=== PATIENT | male | born 1955 | race African-American/Black ===

== ENCOUNTER 2020-12-18 18:43 | Inpatient (IN) | payer MEDICARE, OTHER ==
[~2020-12-18] VITALS: Ht 198.1 cm; Wt 80.6 kg
[~2020-12-18 18:43] MED LIST: CELE200C PO; CYCL-331 PO; GLIM4TAB PO; HYDR-2678 PO; INSU100I11 SQ; METF10007 PO; NEBI10TA3 PO; PREG75CA PO; QUIN40TA16 PO; TRAM-48 PO; VIT1TABL2 PO
[2020-12-18] MEDS ORDERED: IV NORMAL SALINE 1,000ML 1,000 ML IV ONE (19:45)
[2020-12-18] MEDS ORDERED: ONDANSETRON PF 4 MG/2 ML VIAL. IVP ONE (20:00)
--- NOTE | 2020-12-18 20:04 | PHYS DOC ---
Past History Past Medical History: Diabetes, Other (Takotsubo, BPH, history of pituitary removal) Adult General Chief Complaint Chief Complaint: NAUSEA/VOMITING/DIARRHEA HPI HPI Patient is a 65-year-old male presents via POV for nausea vomit and UTI-like symptoms. He reports he awoke with the suprapubic pain and more difficulty than usual urinating 3 days ago. Reports he has been nauseous off and on with worsening nausea in the past 24 hours and " I think like 15" episodes of nonbloody nonbilious emesis. States he has had poor p.o. intake. Lives home alone, states he has not had any falls, no fever, no chest pain, no shortness of breath, no abdominal pain, no motor or sensory function changes, no neurologic changes. Admits history of pituitary resection and has been on hydrocortisone ever since, states he has not been able to take home medications for past 48 hours due to nausea and inability to keep anything down Review of Systems Review of Systems Fourteen body systems of review of systems have been reviewed. See HPI for pertinent positives and negative responses, other seaman all other systems are negative, non-pertinent or non-contributory Current Medications Current Medications Current Medications Medications (Trade) Dose Ordered Sig/Carissa Start Time Stop Time Status Last Admin Dose Admin Ondansetron HCl (Zofran) 4 mg 1X ONCE 12/18/20 20:00 12/18/20 20:01 UNV Sodium Chloride 1,000 ml @ 1,000 mls/hr 1X ONCE 12/18/20 19:45 12/18/20 20:44 Allergies Allergies Allergies Coded Allergies Type Severity Reaction Last Updated Verified Penicillins Allergy Intermediate 01/16/14 Yes Physical Exam Physical Exam Constitutional: Well developed, well nourished, no acute distress, non-toxic appearance. HENT: Normocephalic, atraumatic, bilateral external ears normal, oropharynx dry, no oral exudates, nose normal. Eyes: PERRLA, EOMI, conjunctiva normal, no discharge. Neck: Normal range of motion, no tenderness, supple, no stridor. Cardiovascular: Heart rate regular, sinus rhythm, no murmurs rubs or gallops Lungs & Thorax: Bilateral breath sounds clear to auscultation Abdomen: Bowel sounds normal, soft, suprapubic tenderness with palpation without guarding or rebound, no masses, no pulsatile masses. Nonsurgical abdomen, no peritoneal signs Skin: Warm, dry, no erythema, no rash. Back: No tenderness, no CVA tenderness. Extremities: No tenderness, no cyanosis, no clubbing, ROM intact, no edema. Neurologic: Alert and oriented X 3, grossly normal motor & sensory function, no focal deficits noted. Psychologic: Affect normal, judgement normal, depressed mood Current Patient Data Vital Signs Vital Signs Date Time Temp Pulse Resp B/P (MAP) Pulse Ox O2 Delivery O2 Flow Rate FiO2 12/18/20 19:10 97.9 98 20 136/98 (111) 100 Room Air Vital Signs Date Time Temp Pulse Resp B/P (MAP) Pulse Ox O2 Delivery O2 Flow Rate FiO2 12/19/20 00:11 Room Air 12/18/20 23:44 98.5 89 20 122/84 (97) 97 Lab Results Laboratory Tests Test 12/18/20 19:30 12/18/20 20:50 12/18/20 20:51 Glucose (Fingerstick) 140 mg/dL Urine Collection Type Unknown Urine Color Meg Urine Clarity Cloudy Urine pH 5.5 Urine Specific Mclean >=1.030 Urine Protein Trace Urine Glucose (UA) Neg mg/dL Urine Ketones (Stick) 15 mg/dL Urine Blood Neg Urine Nitrite Pos Urine Bilirubin Small Urine Urobilinogen Dipstick 0.2 mg/dL Urine Leukocyte Esterase Neg Urine RBC 0 /HPF Urine WBC 0 /HPF Urine Squamous Epithelial Cells Few /LPF Urine Bacteria Few /HPF White Blood Count 5.6 x10^3/uL Red Blood Count 4.43 x10^6/uL Hemoglobin 13.6 g/dL Hematocrit 40.6 % Mean Corpuscular Volume 92 fL Mean Corpuscular Hemoglobin 31 pg Mean Corpuscular Hemoglobin Concent 34 g/dL Red Cell Distribution Width 13.5 % Platelet Count 174 x10^3/uL Neutrophils (%) (Auto) 51 % Lymphocytes (%) (Auto) 36 % Monocytes (%) (Auto) 9 % Eosinophils (%) (Auto) 3 % Basophils (%) (Auto) 1 % Neutrophils # (Auto) 2.9 x10^3uL Lymphocytes # (Auto) 2.0 x10^3/uL Monocytes # (Auto) 0.5 x10^3/uL Eosinophils # (Auto) 0.2 x10^3/uL Basophils # (Auto) 0.0 x10^3/uL Sodium Level 137 mmol/L Potassium Level 4.3 mmol/L Chloride Level 102 mmol/L Carbon Dioxide Level 23 mmol/L Anion Gap 12 Blood Urea Nitrogen 23 mg/dL Creatinine 1.7 mg/dL Estimated GFR (Cockcroft-Gault) 49.3 BUN/Creatinine Ratio 14 Glucose Level 130 mg/dL Calcium Level 8.5 mg/dL Total Bilirubin 0.9 mg/dL Aspartate Amino Transf (AST/SGOT) 25 U/L Alanine Aminotransferase (ALT/SGPT) 20 U/L Alkaline Phosphatase 64 U/L Troponin I Quantitative < 0.017 ng/mL Total Protein 7.8 g/dL Albumin 3.7 g/dL Albumin/Globulin Ratio 0.9 Lipase 48 U/L Current Medications Medications (Trade) Dose Ordered Sig/Carissa Route PRN Reason Start Time Stop Time Status Last Admin Dose Admin Sodium Chloride 1,000 ml @ 1,000 mls/hr 1X ONCE IV 12/18/20 19:45 12/18/20 20:44 DC 12/18/20 20:05 Ondansetron HCl (Zofran) 4 mg 1X ONCE IVP 12/18/20 20:00 12/18/20 20:24 DC 12/18/20 20:09 EKG EKG EKG ordered and interpreted by myself at 2128 as sinus rhythm at 92 bpm, intervals unremarkable, left axis deviation, T wave inversions noted in lead I, lead V3, V4, V5 and V6. No STEMI Radiology/Procedures Radiology/Procedures [] Heart Score C/O Chest Pain: No HEART Score for Chest Pain: HEART Score for Chest Pain Response (Comments) Value History Slighlty/Non-Suspicious 0 ECG Nonspecific Repolarizatio 1 Age >45 - < 65 1 Risk Factors >3 Risk Factors or Hx CAD 2 Troponin < Normal Limit 0 Total 4 Risk Factors: Risk Factors: DM, Current or recent (<one month) smoker, HTN, HLP, family history of CAD, obesity. Risk Scores: Risk Factors: DM, Current or recent (<one month) smoker, HTN, HLP, family history of CAD, obesity. Course & Med Decision Making Course & Med Decision Making Hemodynamically stable patient with HPI concerning for nausea and vomit with dehydration and UTI-like symptoms. Physical exam nonconcerning for surgical or emergent pathology ER work-up concerning for UTI. Patient has elevated serum creatinine but this appears near baseline, does appear clinically dehydrated though I discussed case with hospitalist who agreed need for admission. Hospitalist recommended starting 1 g IV Rocephin and administering 50 Solu-Cortef given that patient has not been able to tolerate home daily steroids I have updated patient on proposed plan of care that involved hospital admission, he was amenable. He is relieved that he is being admitted as he has fear of being able to care for himself at home given his weak state. All questions and concerns addressed prior to admission Critical Care Time This patient required critical care. Due to the fact that the patient required a significant amount of one on one physician - patient contact time, ordering and review of studies, arranging urgent treatment with development of a management plan, evaluation of patients response to treatment with frequent reassessments, and discussions with other providers this patient required 45 minutes of critical care time. Critical care time was indicated due to the inherent instability and/or potential for instability in this patient. The critical care time that is allocated to this patient is above and beyond any time spent on any other billable procedures performed on this patient. Dragon Disclaimer Dragon Disclaimer This electronic medical record was generated, in whole or in part, using a voice recognition dictation system. Departure Departure: Impression: Primary Impression: UTI (urinary tract infection) Additional Impression: Nausea & vomiting Disposition: 02 SHORT TERM HOSPITAL Admitting Physician: Donn Rogers Condition: STABLE Referrals: MCKENZIE LOPEZ MD (PCP) Problem Qualifiers JACOBO HERNANDEZ DO Dec 18, 2020 20:04
[2020-12-18 21:06] LABS: BASO % 1 % (0-3); EOS # 0.2 x10^3/uL (0.0-0.7); EOS % 3 % (0-3); HEMATOCRIT 40.6 % (39.0-53.0); HEMOGLOBIN 13.6 g/dL (13.0-17.5); LYMPH % 36 % (24-48); MEAN CORPUSCULAR HEMOGLOBIN 31 pg (25-35); MEAN CORPUSCULAR HGB CONC 34 g/dL (31-37); MEAN CORPUSCULAR VOLUME 92 fL (79-100); MONO # 0.5 x10^3/uL (0.0-1.1); MONO % 9 % (0-9); NEUT # 2.9 x10^3uL (1.8-7.7); NEUT % 51 % (31-73); PLATELET COUNT 174 x10^3/uL (140-400); RED BLOOD COUNT 4.43 x10^6/uL (4.30-5.70); RED CELL DISTRIBUTION WIDTH 13.5 % (11.5-14.5); WHITE BLOOD COUNT 5.6 x10^3/uL (4.0-11.0)
[2020-12-18 21:21] LABS: CALCIUM 8.5 mg/dL (8.5-10.1); CREATININE 1.7 mg/dL (0.7-1.3); GFR 49.3; POTASSIUM 4.3 mmol/L (3.5-5.1)
[2020-12-18 21:27] LABS: ALBUMIN 3.7 g/dL (3.4-5.0); ALBUMIN/GLOBULIN RATIO 0.9 (1.0-1.7); TOTAL BILIRUBIN 0.9 mg/dL (0.2-1.0); TOTAL PROTEIN 7.8 g/dL (6.4-8.2)
--- NOTE | 2020-12-18 21:30 | EKG ---
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
[2020-12-18 21:34] LABS: BILIRUBIN,URINE SMALL (NEG); CLARITY,URINE CLOUDY; COLOR,URINE AMBER; GLUCOSE,URINE NEG (NEG)
[2020-12-18 21:35] LABS: BACTERIA,URINE FEW /HPF (0-FEW); NITRITE,URINE POS (NEG); RBC,URINE 0 /HPF (0-2); SQUAMOUS EPITHELIAL CELL,UR FEW /LPF; UROBILINOGEN,URINE 0.2 mg/dL (0.2 mg/dL); WBC,URINE 0 /HPF (0-4)
[2020-12-18] MEDS ORDERED: HYDROCORTISONE SOD SUCC/PF 100 MG/2 ML VIAL. IVP ONE (22:00)
[2020-12-18] MEDS ORDERED: IV NORMAL SALINE 50ML 50 ML ONE (22:38)
[2020-12-18] MEDS ORDERED: cefTRIAXone SODIUM 1 GM VIAL ONE (22:38)
[2020-12-18 23:44] VITALS: BP 122/84
[2020-12-19] MEDS ORDERED: GABA600T7 PO (02:01)
[2020-12-19] MEDS ORDERED: HYDR-3108 PO (02:01)
[2020-12-19] MEDS ORDERED: TAMS0.4C97 PO (02:01)
[2020-12-19] MEDS ORDERED: HYDR20TA22 PO (02:01)
[2020-12-19] MEDS ORDERED: ONDANSETRON PF 4 MG/2 ML VIAL. IVP PRN (06:30)
[2020-12-19] MEDS ORDERED: IV NORMAL SALINE 1,000ML 1,000 ML IV SCH (06:30)
[2020-12-19 08:26] VITALS: BP_SYST 128; BP_SYST 174; BP_DIAS 72; BP_DIAS 77
--- NOTE | 2020-12-19 08:41 | HP ---
ADMIT DATE: 12/18/2020 ATTENDING PHYSICIAN: Dr. Rogers. CHIEF COMPLAINT: Weakness. HISTORY OF PRESENT ILLNESS: The patient is a 65-year-old gentleman admitted to the ED with symptoms of adrenal insufficiency. He has panhypopituitarism. He has had a recent UTI. He has had some nausea, very weak, tired. Blood pressure was marginal. He was given fluids. He was admitted overnight for hydration and an extra dose of steroids. PAST MEDICAL HISTORY: Significant for disability. He has BPH, remote history of Takotsubo cardiomyopathy, diabetes, which has since resolved. He had a pituitary tumor with resection in 2013. He has panhypopituitarism. SOCIAL HISTORY: He is a nonsmoker, nondrinker. FAMILY HISTORY: Mom of medical complications, diabetes, heart disease age 71. Father of liver cancer at age 59. He was a heavy drinker. CURRENT MEDICATIONS: Includes hydrocortisone 20 mg in the morning and 10 in the evening. He also takes p.r.n. Tylenol, Flomax 0.4 mg and Neurontin 600 mg t.i.d. ALLERGIES: PENICILLIN CAUSING A RASH. REVIEW OF SYSTEMS: Significant for the abdominal symptoms, some mild burning sensation on urination. No recent travel, fevers, chills. All other systems reviewed and found to be negative. PHYSICAL EXAMINATION: GENERAL: When I saw him, this is a pleasant gentleman. VITAL SIGNS: Initial vital signs improved, blood pressures up to 136/98, pulse 80 and regular. He was afebrile, oxygen saturation 100% on room air. HEENT: Head is without trauma. Pupils are reactive. Sclerae nonicteric. Oropharynx is clear. NECK: Supple. No bruits identified. LUNGS: Clear. HEART: Regular heart sounds. ABDOMEN: Soft. EXTREMITIES: Without edema. NEUROLOGIC: Focally intact. Speech is fluent. SKIN: Warm and dry. LABORATORY DATA: Hemoglobin 13.6. White count 5600. Electrolytes within normal range. Creatinine slightly elevated at 1.7 mg/dL. Liver panel unremarkable. Cardiac enzymes negative. ASSESSMENT: 1. A 65-year-old gentleman with symptoms of adrenal insufficiency. 2. Panhypopituitarism. 3. Urinary tract infection. 4. Generalized debilitation. PLAN: 1. Observation status admission. 2. IV hydration. 3. Diet as tolerated. 4. Extra dose of Solu-Cortef administered in the ED. 5. Continue home meds. 6. Antibiotics as ordered. BERHANE/THONG DR: Daniela TID: [id number]
--- NOTE | 2020-12-19 18:41 | DS ---
DATE OF DISCHARGE: 12/19/2020 FINAL DISCHARGE DIAGNOSES: 1. Mild dehydration. 2. Adrenal insufficiency. 3. Panhypopituitarism due to a previous pituitary resection. 4. Generalized debilitation. 5. Hypotension, resolved. 6. Urinary tract infection. Patient is a 65-year-old gentleman admitted to the ED with weakness, hypotension, mild adrenal insufficiency and mild dehydration. He had signs of a UTI. Cultures are pending at this time. PHYSICAL EXAM: Please see the dictated note. PERTINENT LABORATORY AND X-RAY STUDIES: Creatinine slightly elevated at 1.7 mg/dL. He is not on diuretic. Hemoglobin and white count were normal. Blood sugar adequate and his liver enzyme was unremarkable. HOSPITAL COURSE: The patient was admitted. He was given an extra dose of Solu-Cortef, IV hydration and antibiotics. He did well by the next morning when I saw him, blood pressure was up to 130 systolic. Pulse is normal, afebrile. He felt better. He wanted to go home. I felt this is reasonable. At this time, I recommended 1 week boost of hydrocortisone to 30 mg in the morning and 20 in the evening for a week and then back to 20 and 10. I gave him some extra doses of Cortef. In addition, cephalexin 500 mg p.o. t.i.d. for 5 more days and continuation of his Flomax and Neurontin. I encouraged Gatorade orally for hydration. He will follow up with his primary care physician in [facility]. He was discharged from our hospital in stable condition with explicit instructions and followup care. KAMALJIT DR: Daniela TID: [id number]
== END 2020-12-19 09:36 | disposition home or self-care (01) | DRG 641 ==
LOC: ER 18:43 → 1 SOUTH 21:50
PROVIDERS: ADMIT Hospitalist; ATTEND Hospitalist
DX: E86.0 Dehydration (principal); N39.0 Urinary tract infection, site not specified; E23.0 Hypopituitarism; E27.40 Unspecified adrenocortical insufficiency; E11.9 Type 2 diabetes mellitus without complications; N40.0 Benign prostatic hyperplasia without lower urinary tract symptoms; Z80.0 Family history of malignant neoplasm of digestive organs; Z83.3 Family history of diabetes mellitus; I95.9 Hypotension, unspecified; Z88.0 Allergy status to penicillin; Z86.39 Personal history of other endocrine, nutritional and metabolic disease
CPT/HCPCS: 36415; 80053; 81001; 82947; 83690; 84484; 85025; 93005; 96361; 96365; 96375; J0696; J2405; 99291-25; J7030

== ENCOUNTER 2021-03-11 16:55 | Emergency (ER) | payer OTHER ==
[~2021-03-11] VITALS: Ht 198.1 cm; Wt 80.6 kg
[~2021-03-11 16:55] MED LIST changes: +GABA600T7 PO; +HYDR-3108 PO; +HYDR20TA22 PO; +TAMS0.4C97 PO
--- NOTE | 2021-03-11 17:56 | PHYS DOC ---
Past History Past Medical History: Diabetes, Other Additional Past Medical Histor: PAST RENAL FAILURE, PER PT Past Surgical History: Other Additional Past Surgical Histo: BACK AND PITUITARY TUMOR REMOVAL Alcohol Use: None General Adult EDM: Chief Complaint: TOE PROBLEM HPI: HPI: ".. I got this toe infection.. .I am on doxycycline and Keflex for it.. but Dr. Rojas said I needed to go to ED see what your guys say...." Patient is a 65 year old male who presents with above hx and complaints of Lt 2nd toe infection. Pt. is diabetic. States sugars and stable. Patient denies any recent travel. No specific ill contacts. No history immunosuppression. Review of Systems: Review of Systems: Constitutional: Denies fever or chills Eyes: Denies change in visual acuity HENT: Denies nasal congestion or sore throat Respiratory: Denies cough or shortness of breath Cardiovascular: Denies chest pain or edema GI: Denies abdominal pain, nausea, vomiting, bloody stools or diarrhea : Denies dysuria Musculoskeletal: Denies back pain or joint pain Integument: Complains of infected left second toe Neurologic: Denies headache, focal weakness or sensory changes Endocrine: Denies polyuria or polydipsia Lymphatic: Denies swollen glands Psychiatric: Denies depression or anxiety Family History: Family History: Noncontributory Current Medications: Current Meds: See nursing for home meds Allergies: Allergies: Allergies Coded Allergies Type Severity Reaction Last Updated Verified Penicillins Allergy Intermediate 01/16/14 Yes Physical Exam: PE: Constitutional: no acute distress, non-toxic appearance. [] HENT: Normocephalic, atraumatic, bilateral external ears normal, oropharynx m oist, no oral exudates, nose normal. [] Eyes: PERRLA, EOMI, conjunctiva normal, no discharge. [] Neck: Normal range of motion, no tenderness, supple, no stridor. [] Cardiovascular:Heart rate regular rhythm, no murmur [] Lungs & Thorax: Bilateral breath sounds clear to auscultation [] Abdomen: Bowel sounds normal, soft, no tenderness, no masses, no pulsatile masses. [] Skin: Warm, dry, no erythema, no rash. [] Back: No tenderness, no CVA tenderness. [] Extremities: No tenderness, no cyanosis, no clubbing, ROM intact, no edema. [] Swollen inflamed left second toe. Neurologic: Alert and oriented X 3, normal motor function, normal sensory function, no focal deficits noted. [] Psychologic: Affect normal, judgement normal, mood normal. [] Current Patient Data: Vital Signs: Vital Signs Date Time Temp Pulse Resp B/P (MAP) Pulse Ox O2 Delivery O2 Flow Rate FiO2 03/11/21 17:05 69 16 137/71 99 Room Air EKG: EKG: [] Radiology/Procedures: Radiology/Procedures: [][address] [address] IMAGING REPORT Signed PATIENT: GILL POEWLL VACCOUNT: [id number] : 1955 LOCATION: ER AGE: 65 SEX: M EXAM STATUS: REG ER ORD. PHYSICIAN: JOCELYN DE LA GARZA MD REASON: toe in fection in diabetic PROCEDURE: FOOT LEFT 3V Exam: Left foot 3 views INDICATION: Toe infection TECHNIQUE: Frontal, lateral and oblique views of the left foot Comparisons: None FINDINGS: Soft tissue swelling at the forefoot. Bone mineralization is normal. No acute or healed fractures. Joint spaces are well-maintained. IMPRESSION: Soft tissue swelling at the forefoot without underlying osseous abnormality identified. Electronically signed by: Nohemi Boothe MD (03/11/2021 7:32 PM) [facility] DICTATED AND SIGNED BY: NOHEMI BOOTHE MD DATE: 03/11/21 193 CC: JOCELYN DE LA GARZA MD; MCKENZIE ROJAS MD ~MTH0 0 Heart Score: C/O Chest Pain: N/A Risk Factors: Risk Factors: DM, Current or recent (<one month) smoker, HTN, HLP, family history of CAD, obesity. Risk Scores: Score 0 - 3: 2.5% MACE over next 6 weeks - Discharge Home Score 4 - 6: 20.3% MACE over next 6 weeks - Admit for Clinical Observation Score 7 - 10: 72.7% MACE over next 6 weeks - Early Invasive Strategies Course & Med Decision Making: Course & Med Decision Making Pertinent Labs and Imaging studies reviewed. (See chart for details) Patient take the antibiotics as previously prescribed. Follow-up primary care. Follow-up with [facility] Ortho. Return if any concerns. Impression: 1. Left second toe cellulitis/infection. [] Kurtis Disclaimer: Kurtis Disclaimer: This electronic medical record was generated, in whole or in part, using a voice recognition dictation system. Departure Departure: Referrals: MCKENZIE ROJAS MD (PCP) JOCELYN DE LA GARZA MD Mar 11, 2021 17:56
[2021-03-11] MEDS ORDERED: cefTRIAXone IM 1 GM VIAL IM ONE (19:00)
--- NOTE | 2021-03-11 19:35 | RAD ---
Exam: Left foot 3 views INDICATION: Toe infection TECHNIQUE: Frontal, lateral and oblique views of the left foot Comparisons: None FINDINGS: Soft tissue swelling at the forefoot. Bone mineralization is normal. No acute or healed fractures. Estela int spaces are well-maintained. IMPRESSION: Soft tissue swelling at the forefoot without underlying osseous abnormality identified. Electronically signed by: Nohemi Vaughan MD (03/11/2021 7:32 PM) JUAN
[2021-03-11 20:10] VITALS: BP 160/93
== END 2021-03-11 20:10 | disposition home or self-care (01) ==
LOC: ER 16:55
DX: L08.89 Other specified local infections of the skin and subcutaneous tissue (principal); E11.9 Type 2 diabetes mellitus without complications; Z88.0 Allergy status to penicillin
CPT/HCPCS: 73630; 96372; 99283; J0696

== ENCOUNTER → 2021-07-03 | Outpatient (CLI) | payer OTHER ==
[~2021-07-03] MED LIST changes: -CYCL-331 PO; +CYCL10TA19 PO
--- NOTE | 2021-07-03 17:13 | RAD ---
EXAM: Partial basic views of the left foot DATE: 07/03/2021 1:04 PM INDICATION: Reason: LEFT FOOT PAIN / Spl. Instructions: DO XRAYS WEIGHT BEARING / History: COMPARISON: 03/11/2021 FINDINGS: No acute fracture or dislocation. Chronic deformity proximal phalanx left great toe from old/healed f racture. Hallux valgus. Lateral subluxation of the sesamoids. Amputation at the PIP joint second toe. Pes planus. Calcaneal enthesophytes. Atherosclerotic vascular calcifications are seen. Hindfoot valg us. IMPRESSION: 1. Pes planovalgus. 2. Hallux valgus with lateral subluxation of the sesamoids. 3. Amputation through the PIP joint second toe. Electronically signed by: Theron Page MD (07/03/2021 5:11 PM) [id number]
== END ==
LOC: RAD 12:57
PROVIDERS: ATTEND Podiatrist
DX: S93.142A Subluxation of metatarsophalangeal joint of left great toe, initial encounter (principal); M20.12 Hallux valgus (acquired), left foot; X58.XXXA Exposure to other specified factors, initial encounter; Y93.89 Activity, other specified; Y92.89 Other specified places as the place of occurrence of the external cause; Y99.8 Other external cause status; M77.32 Calcaneal spur, left foot
CPT/HCPCS: 73630